=== PATIENT | female | born 1990 | race Two or more races ===

== ENCOUNTER 2019-01-05 14:45 | Emergency (ER) | payer OTHER ==
--- NOTE | 2019-01-05 14:57 | EDPHY ---
H & P Time Seen by Provider: 01/05/19 14:54 HPI/ROS: CHIEF COMPLAINT: Midline lumbar pain. HISTORY OF PRESENT ILLNESS: [ Previously healthy 28-year-old female who states that she is not . 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 She was at work today moving around some trace of bread. However there were 11: 30 a.m. She started noticing a twinge of pain in the midline low back. At lunchtime, there is bad enough that she took some ibuprofen 40 mg and contacted human resources. The pain further progressed to now she describes as 8/10, localized to the midline over the L4/L5. It does not radiate to the buttocks or the legs. There has been no associated bowel or Bladder incontinence. She has no prior back problems before. The ibuprofen really did not work. She described as an ache and at times shooting, however it does not go into the buttock Prior instrumentation of the back: None IV drug abuse: None Bowel or bladder continence: None Fever: None Loss of sensation in the saddle distribution: None ROS: Constitutional - No antecedent fever, n, or v. Neck: no pain or decreased ROM GI - no nausea vomiting or diarrhea. There is no abdominal pain or distention. - no dysuria or frequency. No hematuria or flank pain. Musculoskeletal - no joint or muscle pain. Integument - no lacerations Neurological - no headache, numbness, tingling, or paresthesias. No focal motor weakness.. A 10 system review of systems was performed and is negative except for the noted findings in the HPI. Physical Exam: General: Well-developed well-nourished, obese. Nontoxic. Afebrile. Vital signs are stable. She moves poorly, getting up out of the chair is if she stiff and has some difficulty climbing up to the stretcher, which is a short stretcher. Skin: No rashes Back: No spasm of the muscles. No rashes. Range of motion [limited] to flexion, extension as well as side bending SLR: Negative Great Toe Extension: Strong, symmetrical, normal Patellar Reflex: 2+ Ankle Reflex: 0+ Sensation: Normal to pinch. Constitutional: Initial Vital Signs Temperature (C) 37.4 C 01/05/19 15:01 Heart Rate 82 01/05/19 15:01 Respiratory Rate 16 01/05/19 15:01 Blood Pressure 100/70 01/05/19 15:01 O2 Sat (%) 95 01/05/19 15:01 O2 Delivery Mode Room Air Allergies/Adverse Reactions: No Known Allergies Allergy (Unverified 01/05/19 15:00) Home Medications: Medication Instructions Recorded NK [No Known Home Meds] 01/05/19 Medical Decision Making ED Course/Re-evaluation: There is no direct trauma or fall involved thus the thought of a fractures extraordinary remote. Thereby there is also no evidence to suggest a radiculopathy or sciatica. Most likely it appears to be a cute degenerative disc and expect to resolve the next 5-7 days. However she is not allowed to go back to work until released by worker's Comp physician follow-up. She is to go through for that. In the interim pain management as follows: Tylenol 1000 mg three times daily Ibuprofen 600 mg three times daily Ice applications, no bending past her waist, been with her knees, as well as no picking up her 1-year-old Differential Diagnosis: Differential diagnosis includes but not limited to: Fracture, Sprain, Strain, Acute Degenerative Disc, Disc Herniationa, Radiculopathy, Sacroiliac dysfunction, Epidural Abscess. Departure - Departure Disposition: Home, Routine, Self-Care Clinical Impression: ACUTE DEGENERATION DISC Low back pain Qualifiers: Chronicity: acute Back pain laterality: midline Sciatica presence: without sciatica Qualified Code(s): M54.5 - Low back pain Condition: Good Instructions: Low Back Strain (ED) Additional Instructions: Tylenol and Advil works well together the combination: Tylenol 1000 mg and 600 mg every 8 hours as needed for the pain. We are referring you to a worker's compensation physician No work until released by the above worker's compensation physician Ice, 20 min, 5 times a day. No lifting anything more than 10 lb. No bending over past her waist. If he must bend, bend the knees. ---- Tylenol y Advil trabajan muy franklyn en conjunto con la siguiente combinacion. Tylenol 1000mg y 600mg cada 8 horas shahana sabrina sea necesario. Te vamos a referir a un medico que es parte de la compensacion del obrador. No trabaje hasta que sea autorizado por el medico de la compensacion del obrador. Hielo, 20 minutos, 5 veces al fernando. No levante nada mayor a 10 libras. Al doblar la cintura, no doble mas abajo del nivel de la cintura. Si tiene que agacharse, doble las rodillas. Referrals: [facility] [Other] - As per Instructions Stand Alone Forms: Work Excuse
[2019-01-05 17:57] VITALS: BP 102/65
== END 2019-01-05 17:00 | disposition home or self-care (01) ==
LOC: CED 14:45
DX: M54.5 Low back pain (principal); M51.35 Other intervertebral disc degeneration, thoracolumbar region
CPT/HCPCS: 99282-ER